=== PATIENT | female | born 1980 | race Hispanic/Latino ===

== ENCOUNTER 2017-03-16 13:57 | Emergency (ER) | payer BC ==
[2017-03-16 14:06] VITALS: BMI 21.4
[2017-03-16 14:07] VITALS: BP 116/65; PULSE 74; RESP 16; TEMP 98; O2SAT 100
[2017-03-16] MEDS ORDERED: Sodium Chloride 0.9% 1,000 ML IV STA (14:28)
--- NOTE | 2017-03-16 14:30 | ED PDOC ---
HPI: Allergic Reaction Time Seen by Provider: 03/16/17 14:13 Chief Complaint (Nursing): Allergic Reaction Chief Complaint (Provider): Palpitations History Per: Patient History/Exam Limitations: no limitations Onset/Duration Of Symptoms: Intermittent Episodes (since after ingestion of licorice) Current Symptoms Are (Timing): Better Additional Complaint(s): Xochitl is a 36 y/o female who presents to the ED complaining of intermittent episodes of palpitations since . States that on she was feeling fine, took something with licorice (1500 mg) started developing palpitations and sweating, felt hands clawing up, became nauseous, and vomited clear liquid. Saw PMD who gave her anti-nausea medicine. Yesterday had another episode of palpitations which resolved. Today she experienced palpitations again associated with generalized weakness and dizziness, and some chest pain after the palpitations. Currently she has no chest pain or palpitations. No numbness, tingles, headaches. No drugs or etoh. No dyspnea. PMD: Unknown Past Medical History Reviewed: Historical Data, Nursing Documentation, Vital Signs Vital Signs: Last Vital Signs Temp 98.0 F 03/16/17 14:06 Pulse 74 03/16/17 14:06 Resp 16 03/16/17 14:06 BP 116/65 03/16/17 14:06 Pulse Ox 100 03/16/17 14:06 - Medical History PMH: No Chronic Diseases - Surgical History Surgical History: No Surg Hx - Family History Family History: States: Unknown Family Hx - Living Arrangements Living Arrangements: With Family - Social History Current smoker - smoking cessation education provided: No Alcohol: None Drugs: Denies - Allergies Allergies/Adverse Reactions: Allergies Allergy/AdvReac Type Severity Reaction Status Date / Time No Known Allergies Allergy Verified 03/16/17 14:06 Review of Systems ROS Statement: Except As Marked, All Systems Reviewed And Found Negative Constitutional: Negative for: Fever, Chills ENT: Negative for: Nose Discharge, Nose Congestion Cardiovascular: Positive for: Chest Pain, Palpitations Respiratory: Negative for: Cough Gastrointestinal: Positive for: Nausea, Vomiting. Negative for: Abdominal Pain , Diarrhea Musculoskeletal: Negative for: Neck Pain, Back Pain, Leg Pain Neurological: Positive for: Weakness, Dizziness. Negative for: Numbness, Headache Physical Exam - Reviewed Nursing Documentation Reviewed: Yes Vital Signs Reviewed: Yes - Physical Exam Appears: Positive for: Non-toxic, No Acute Distress Head Exam: Positive for: ATRAUMATIC, NORMAL INSPECTION, NORMOCEPHALIC Skin: Positive for: Normal Color, Warm, Dry Eye Exam: Positive for: EOMI, Normal appearance, PERRL ENT: Positive for: Normal ENT Inspection. Negative for: Nasal Congestion Neck: Positive for: Normal, Painless ROM, Supple Cardiovascular/Chest: Positive for: Regular Rate, Rhythm. Negative for: Murmur Respiratory: Positive for: Normal Breath Sounds. Negative for: Accessory Muscle Use, Respiratory Distress Pulses-Radial (L): 2+ Pulses-Radial (R): 2+ Gastrointestinal/Abdominal: Positive for: Normal Exam, Soft. Negative for: Tenderness Back: Positive for: Normal Inspection. Negative for: L CVA Tenderness, R CVA Tenderness, Vertebral Tenderness Extremity: Positive for: Normal ROM, Capillary Refill (< 2 sec). Negative for: Calf Tenderness, Deformity Neurologic/Psych: Positive for: Alert, him tech II-XII (intact), Oriented, Cerebellar Tests (normal), Gait (steady). Negative for: Motor/Sensory Deficits , Aphasia, Facial Droop - Laboratory Results Result Diagrams: 03/16/17 15:01 03/16/17 15:01 Interpretation Of Abn Labs: no acute - ECG ECG: Positive for: Interpreted By Me, Viewed By Me ECG Rhythm: Positive for: Normal QRS, Normal ST Segment, Sinus Rhythm O2 Sat by Pulse Oximetry: 100 (RA) Pulse Ox Interpretation: Normal - Radiology X-Ray: Interpreted by Me, Viewed By Me X-Ray Interpretation: No Acute Disease - Progress ED Course And Treament: 1629: Stable. AAOx3. Pain free. Tolerated PO. Fu with pcp. Nurse spoke with poison control. Will dc. Disposition - Clinical Impression Clinical Impression: Weakness, Palpitation - Patient ED Disposition Is Patient to be Admitted: No Counseled Patient/Family Regarding: Studies Performed, Diagnosis, Need For Followup - Disposition Referrals: [facility] [place] [Outside] - 03/18/17 Disposition: Routine/Home Disposition Time: 16:45 Condition: STABLE Additional Instructions: Return if not better in 3 days. Instructions: Weakness (ED), Palpitations (ED) Forms: [employer] (Samoan) Medical Decision Making Medical Decision Making: Time: 14:28 Initial Plan: --EKG --CXR --CMP --Urine drug screen --Alcohol serum --Lipase --Troponin I --Urine --Urine dipstick --NS IV 1000 ml at 1000 mls/hr --Zofran 4 mg IV --Pending reevaluation Scribe Attestation: Documented by Stacey Dobbins, acting as a scribe for Wisam Nur MD Provider Scribe Attestation: All medical record entries made by the Scribe were at my direction and personally dictated by me. I have reviewed the chart and agree that the record accurately reflects my personal performance of the history, physical exam, medical decision making, and the department course for this patient. I have also personally directed, reviewed, and agree with the discharge instructions and disposition.
[2017-03-16 15:20] LABS: BASO % 0.6 % (0.0-2.0); EOS % 0.3 % (0.0-4.0); LYMPH # 1.4 K/uL (1.0-4.3); LYMPH % 17.6 % (20.0-40.0); MEAN CELL VOLUME 85.2 fl (81.0-99.0); MEAN CORPUSCULAR HEMOGLOBIN 28.8 pg (27.0-31.0); MEAN CORPUSCULAR HGB CONC 33.8 g/dL (33.0-37.0); MEAN PLATELET VOLUME 8.6 fl (7.2-11.7); MONO # 0.6 K/uL (0.0-0.8); MONO % 7.5 % (0.0-10.0); RED CELL DISTRIBUTION WIDTH 12.2 % (11.5-14.5); WHITE BLOOD COUNT 8.1 K/uL (4.8-10.8)
[2017-03-16 15:39] LABS: ALB/GLOB RATIO 1.3 (1.0-2.1); ALCOHOL SERUM < 10 mg/dl (0-10); ALKALINE PHOSPHATASE 56 U/L (38-126); ALT/SGPT 27 U/L (9-52); AST/SGOT 27 U/L (14-36); BILIRUBIN,TOTAL 0.4 mg/dl (0.2-1.3); BLOOD UREA NITROGEN 12 mg/dl (7-17); CALCIUM 9.8 mg/dL (8.4-10.2); CARBON DIOXIDE 27 mmol/L (22-30); CHLORIDE 103 mmol/L (98-107); GFR AFRICAN-AMERICAN > 60; GLUCOSE,RANDOM 99 mg/dL (65-105); LIPASE 73 U/L (23-300); POTASSIUM 3.9 MMOL/L (3.6-5.0); SODIUM 142 mmol/l (132-148); TOTAL PROTEIN 7.4 G/DL (6.3-8.2)
--- NOTE | 2017-03-16 22:36 | RAD ---
HISTORY: palpitations COMPARISON: No prior. FINDINGS: LUNGS: No active pulmonary disease. PLEURA: No significant pleural effusion identified, no pneumothorax apparent. CARDIOVASCULAR: Normal. OSSEOUS STRUCTURES: No significant abnormalities. VISUALIZED UPPER ABDOMEN: Normal. OTHER FINDINGS: None. IMPRESSION: No active disease.
--- NOTE | 2017-03-17 09:28 | CARD ---
APPROVED REPORT EKG Measurement Heart [id number] <Conclusion> Normal sinus rhythm Nonspecific ST abnormality Abnormal ECG
== END 2017-03-16 17:40 | disposition home or self-care (01) ==
LOC: H.ER 13:57
DX: R00.2 Palpitations (principal); R53.1 Weakness
CPT/HCPCS: 71010; 80053; 81025; 83690; 84484; 85025; 93005; 96360; 99283; G0480; J7040